=== PATIENT | male | born 1995 | race Caucasian/White ===

== ENCOUNTER → 2016-12-22 15:02 | Outpatient (CLI) | payer MEDICAID ==
[2015-06-16 06:58] VITALS: BMI 25.9
[~2016-12-22 15:02] MED LIST: HYDROCODONE-APA1 TAB PO; VYVANSE20 MG PO
[2016-12-22 19:26] LABS: HELICOBACTER PYLORI IGG POSITIVE (NEGATIVE)
== END | disposition home or self-care (01) ==
LOC: D.LABREF 15:02
PROVIDERS: Family Medicine
DX: B96.81 Helicobacter pylori [H. pylori] as the cause of diseases classified elsewhere (principal)

== ENCOUNTER 2019-02-07 06:15 | Day surgery (SDC) | payer MEDICAID ==
[~2019-02-07] VITALS: Ht 177.8 cm; Wt 111.6 kg
[2019-02-07 06:35] LABS: BASOPHILS 0.4 % (0-2); EOSINOPHILS 1.3 % (0-7); HEMATOCRIT 39.4 % (42.0-54.0); HEMOGLOBIN 13.6 g/dL (13.5-17.5); IMMATURE GRANULOCYTES 0.4 % (0-5); LYMPHOCYTES 35.6 % (15-50); MCH 29.8 pg (26.0-34.0); MCHC 34.5 g/dL (31.0-37.0); MCV 86.2 fL (80.0-100.0); MEAN PLATELET VOLUME 10.8 fL (7.4-10.4); MONOCYTES 10.4 % (2-11); NEUTROPHILS 51.9 % (40-80); PLATELET COUNT 164 10x3/uL (130-400); RBC 4.57 10x6/uL (4.20-6.10); RDW 12.8 % (11.5-14.5); WBC 5.4 10x3/uL (4.8-10.8)
[2019-02-07 06:59] LABS: CALC OSMOLALITY 280 mosm/kg (275-300); CALCIUM 8.5 mg/dL (8.5-10.1); CARBON DIOXIDE 24.8 mmol/L (21.0-32.0); CHLORIDE - SERUM 108 mmol/L (98-107); CREATININE - SERUM 1.1 mg/dL (0.6-1.3); GLUCOSE 106 mg/dL (74-106); SODIUM 141 mmol/L (136-145); UREA NITROGEN 12 mg/dL (7-18); eGFR NON AFRICAN AMERICAN 88 mL/min (90-120)
[2019-02-07 07:36] VITALS: BP 124/66; Ht 177.8 cm; Wt 111.6 kg
[2019-02-07] MEDS ORDERED: HYDROCODON-ACE1 EA10 PO (10:10)
--- NOTE | 2019-02-07 12:52 | NUR ---
1056-REC'D FROM RR,DROWSY EASILY AROUSED. VSS. MOTHER AT BEDSIDE.
--- NOTE | 2019-02-07 12:52 | NUR ---
1115-ULTRAM TO ROOM FOR PAIN. MOTHER DOES NOT WANT PT TO HAVE BECAUSE SHE SAYS THE ULTRAM WILL NOT WORK FOR HIS PAIN. REVIEWED ORDERS REC'D WITH PT AND MOTHER. MOTHER NOT ALLOWING PT SPEAK FOR HISSELF AT THIS TIME, PT IS OF AGE WITHOUT ANY DISABILITIES. VERY DIFFICULT TO EXPLAIN TO MOTHER AT THIS TIME. SHE IS REQUESTING HE HAVE BOTH HYDROCODONE AND ULTRAM. EXPLAINED AGAIN THIS WAS NOT AN ORDER FOR PT. WILL CONTACT FOR FURTHER ORDERS.
--- NOTE | 2019-02-07 13:37 | NUR ---
1230- TO ROOM TO SPEAK WITH PT REGARDING PAIN MEDICATIONS. NEW ORDER RECEOVED TO CALL IN PHENERGAN 25MG BY MOUTH TO PHARMACY OF CHOICE. PT AWARE WITHOUT QUESTIONS OR CONCERNS.
--- NOTE | 2019-02-07 14:25 | NUR ---
1405-DISCHARGE CRITERIA MET. [facility] TO CONTACT PT AT HOME TO SET UP SERVICES. REVIEWED DISCHARE INSTRUCTIONS WITH PT AND MOTHER,VERBALIZED UNDERSTANDING WITHOUT QUESTIONS OR CONCERNS. DUE TO AREA OF SURGERY PT REQUEST TO AMBULATE OUT. ESCORTED OUT BY STAFF WITH MOTHER TO DRIVE HOME.
--- NOTE | 2019-02-26 10:07 | OP ---
PATIENT NAME: HOANG RUDD MEDICAL RECORD: [id number] :95 LOCATION:[facility] ADMISSION DATE: SURGEON: SHUN HSU MD DATE OF OPERATION: 02/07/2019 PREOPERATIVE DIAGNOSIS: Recurrent pilonidal cyst. POSTOPERATIVE DIAGNOSIS: Recurrent pilonidal cyst. PROCEDURE: Pilonidal cystectomy with marsupialization. SURGEON: Shun Hsu MD REPORT OF PROCEDURE: The patient was placed in the jackknife prone position and the perianal and gluteal regions were prepped and draped in sterile fashion. We probed the largest area on the most superior aspect of the pilonidal cyst and this tracked inferiorly. I was able to probe another small opening on the inferior aspect, which tracked superiorly. Eventually, just opened up the midline using electrocautery and came down into a cystic cavity. There was no sign of any purulent material present and no hair was found. We opened this all the way down to the patient's sacral fascia. Once this was done, then we were able to excise the cystic cavity on both sides down to normal appearing fatty tissue. At this point, all the cystic tracts were removed. We then irrigated out the wound with normal saline. We marsupialized the edges by rolling these down in and suturing the edges of the skin to the sacral and coccygeal fascia using interrupted 2-0 Vicryls. We then irrigated out the wound one last time and assured there was no sign of any bleeding. A dry gauze was then placed in the wound and covered with 4 x 4's. COMPLICATIONS: None. CONDITION: Stable. ANESTHESIA: General endotracheal and local. BLOOD LOSS: 30 mL. TRANSINT:[id number] Voice Confirmation ID: [id number] DOCUMENT ID: [id number] SHUN HSU MD at 1007 CC: DANII CHAVEZ DO [id number] DICTATION DATE: 02/07/19 1014 [employer] TEACHER: 02/07/19 1332 [facility] 02/07/19 [id number] [place] [address]
== END 2019-02-07 14:05 | disposition home or self-care (01) ==
LOC: D.OPS 06:15 → D.PAN 09:30 → D.OPS 10:00
PROVIDERS: ATTEND Surgery
DX: L05.91 Pilonidal cyst without abscess (principal); Z01.812 Encounter for preprocedural laboratory examination